=== PATIENT | female | born 1955 | race Caucasian/White ===

== ENCOUNTER 2017-04-13 07:31 | Emergency (ER) | payer OTHER ==
[~2017-04-13] VITALS: Ht 160 cm; Wt 74.5 kg
[2017-04-13 07:36] VITALS: Ht 160 cm; Wt 74.5 kg
[2017-04-13] MEDS ORDERED: IBUPROFEN 800 MG TAB PO ONE (08:00)
[2017-04-13] MEDS ORDERED: IBUP800T25 PO (08:09)
--- NOTE | 2017-04-13 09:28 | ERD ---
ER Documentation Chief Complaint Date/Time DATE: 04/13/17 TIME: 09:25 Chief Complaint pt WITH SWOLLEN GLANDS, MARIA AND B EAR PAIN SINCE LAST NIGHT. HPI 61-year-old female coming in complaining of sore throat 1 day. Patient is concerned she has mumps. She is unaware of her vaccination. She states that she has pain with swallowing. She has not noticed any severe facial swelling. States she has noticed 2 bumps under her mandible. No fevers. No chest pain. No shortness of breath. No coughing. Denies nasal congestion. Has mild ear pain. No vomiting. Has not taken medications for her symptoms. Denies medical problems. NKDA. Surgeries denies. Social history denies. Denies sick contacts. ROS All systems reviewed and are negative except as per history of present illness. Medications Home Meds Active Scripts Ibuprofen* (Motrin*) 800 Mg Tab, 800 MG PO Q6, #30 TAB Prov:DUMASRUBÉN PA-C 04/13/17 Allergies Allergies: Coded Allergies: No Known Allergy (Unverified , 04/13/17) PMhx/Soc Medical and Surgical Hx: pt denies Medical Hx, pt denies Surgical Hx History of Surgery: No Anesthesia Reaction: No Hx Neurological Disorder: No Hx Respiratory Disorders: No Hx Cardiac Disorders: No Hx Psychiatric Problems: No Hx Miscellaneous Medical Probl: No Hx Alcohol Use: No Hx Substance Use: No Hx Tobacco Use: No Smoking Status: Never smoker Physical Exam Vitals Vital Signs Date Time Temp Pulse Resp B/P Pulse Ox O2 Delivery O2 Flow Rate FiO2 04/13/17 07:36 99.4 79 14 143/90 96 Physical Exam GENERAL: The patient is well-appearing, well-nourished, in no acute distress HEENT: Atraumatic. Conjunctivae are pink. Pupils equal, round, and reactive to light. There is no scleral icterus. Tympanic membranes clear bilaterally. Oropharynx clear. No nystagmus or photophobia. Uvula midline. No tonsillar exudate appreciated. NECK: C-spine is soft and supple. There is no meningismus. Small bilateral cervical lymphadenopathy. No JVD. No bruits. No goiter. No submandibular swelling. CHEST: Clear to auscultation bilaterally. There are no rales, wheezes or rhonchi. HEART: Regular rate and rhythm. No murmurs, clicks, rubs or gallops. No S3 or S4. SKIN: There is no apparent rash or petechiae. The skin is warm and dry. HEMATOLOGIC AND LYMPHATIC: Small bilateral cervical lymphadenopathy appreciated. Airway patent. Results 24 hrs Current Medications Medications (Trade) Dose Ordered Sig/Chance Route PRN Reason Start Time Stop Time Status Last Admin Dose Admin Ibuprofen (Motrin) 800 mg ONCE ONCE PO 04/13/17 08:00 04/13/17 08:01 DC 04/13/17 08:07 Procedures/MDM MDM: 61-year-old female complaining of sore throat. I have low suspicion for mumps. I have low suspicion for bacterial HEENT infection. Suspicion for peritonsillar or retropharyngeal abscess. Low suspicion for airway compromise. Patient likely has viral pharyngitis. I do not feel that antibiotics are indicated. I do not feel that there is indication for blood work or further imaging. Patient be recommended to take pain medication for comfort and maintain adequate hydration. I discharged patient was strict ER precautions and a prescription for ibuprofen. Patient is recommended to follow-up with primary doctor in 1-2 days for close evaluation. All questions answered at the time of discharge. Departure Diagnosis: Primary Impression: Sore throat Condition: Stable Patient Instructions: Self-Care for Sore Throats Referrals: [facility] YOU HAVE RECEIVED A MEDICAL SCREENING EXAM AND THE RESULTS INDICATE THAT YOU DO NOT HAVE A CONDITION THAT REQUIRES URGENT TREATMENT IN THE EMERGENCY DEPARTMENT. FURTHER EVALUATION AND TREATMENT OF YOUR CONDITION CAN WAIT UNTIL YOU ARE SEEN IN YOUR DOCTORS OFFICE WITHIN THE NEXT 1-2 DAYS. IT IS YOUR RESPONSIBILITY TO MAKE AN APPOINTMENT FOR FOLOW-UP CARE. IF YOU HAVE A PRIMARY DOCTOR --you should call your primary doctor and schedule an appointment IF YOU DO NOT HAVE A PRIMARY DOCTOR YOU CAN CALL OUR PHYSICIAN REFERRAL HOTLINE AT IF YOU CAN NOT AFFORD TO SEE A PHYSICIAN YOU CAN CHOSE FROM THE FOLLOWING [facility] [address] [facility] [address] [facility] [address] [facility] [address] [facility]. [facility] [address] [facility]. [facility] [address] Additional Instructions: FOLLOW UP WITH YOUR PRIMARY CARE PHYSICIAN TOMORROW.Return to this facility if you are not improving as expected. RUBÉN DUMAS PA-C Apr 13, 2017 09:28
== END 2017-04-13 08:23 | disposition home or self-care (01) ==
LOC: FTE 07:31
DX: J02.9 Acute pharyngitis, unspecified (principal)
CPT/HCPCS: Z7502; Z7610; 99283